=== PATIENT | male | born 1935 | race Caucasian/White ===

== ENCOUNTER 2018-07-26 11:28 | Day surgery (SDC) | payer MEDICARE ==
[2018-07-22 13:56] VITALS: BP 142/83
[~2018-07-26] VITALS: Ht 177.8 cm; Wt 60.6 kg
[~2018-07-26 11:28] MED LIST: APIX2.5T PO; LIPA1CAP45 PO; LOPE2CAP PO; METO25TA35 PO; MULT-717 PO; SIME125C78 PO
[2018-07-26] MEDS ORDERED: LACTATED RINGERS 1,000 ML IV SCH (12:15)
[2018-07-26] MEDS ORDERED: PROPOFOL 10 MG/ML, 20ML ONE (15:06)
== END 2018-07-26 16:35 | disposition home or self-care (01) ==
LOC: OUT 11:28
PROVIDERS: ATTEND Internal Medicine
DX: K52.9 Noninfective gastroenteritis and colitis, unspecified (principal); I25.10 Atherosclerotic heart disease of native coronary artery without angina pectoris; I48.91 Unspecified atrial fibrillation; I10 Essential (primary) hypertension; E78.5 Hyperlipidemia, unspecified
CPT/HCPCS: 44705; 45378; 93005; J2704; J7120